=== PATIENT | female | born 1985 | race Two or more races ===

== ENCOUNTER 2025-09-29 09:47 | Outpatient (CLI) | payer OTHER | END 2025-09-29 09:48 | disposition home or self-care (01) | LOC: PRENATAL 09:47 | PROVIDERS: ATTEND Obstetrics & Gynecology Maternal & Fetal Medicine | DX: O36.80X0 Pregnancy with inconclusive fetal viability, not applicable or unspecified (principal); Z36.82 Encounter for antenatal screening for nuchal translucency; Z14.8 Genetic carrier of other disease; O09.521 Supervision of elderly multigravida, first trimester; O34.41 Maternal care for other abnormalities of cervix, first trimester; O34.11 Maternal care for benign tumor of corpus uteri, first trimester; Z3A.13 13 weeks gestation of pregnancy ==